=== PATIENT | female | born 2005 | race Two or more races ===

== ENCOUNTER 2024-09-15 22:44 | Emergency (ER) | payer MEDICAID, SELFPAY ==
[2024-09-15 22:46] VITALS: BMI 25.7
[2024-09-15 22:57] VITALS: BP 135/82; PULSE 55; RESP 19; TEMP 36.4; O2SAT 99
--- NOTE | 2024-09-16 01:58 | EDNOTE_ITS ---
ED Abdominal Pain RME/HPI General Chief Complaint: Abdominal Pain Stated complaint: VOMITING,DIARRHEA,ABD PAIN Time seen by provider: 09/16/24 01:04 Arrival date/time: 09/15/24 22:44 RME / HPI RME / HPI narrative: 19-year-old female presents to the ED with complaint of nausea and vomiting since Monday. She vomited 3 times on Monday, 2 times on Monday and once on Monday. She continues to have nausea. She denies any recent illness with fever, chills, cough, upper respiratory complaints, diarrhea or constipation. She is complaining of some mild epigastric and left upper quadrant pain with vomiting. She denies any dysuria or frequency. Her last menstrual period started last Monday and is normal per patient. Related Data Previous Rx's ?Medication ?Instructions ?Recorded ondansetron 4 mg disintegrating 4 mg PO Q8H PRN nausea and 09/16/24 tablet vomiting #10 tabs Allergies Allergy/AdvReac Type Severity Reaction Status Date / Time No Known Allergies Allergy Verified 09/15/24 22:45 Review of Systems Review of Systems Systems Reviewed: All systems reviewed, normal except as documented Past Medical History Social History SMOKING STATUS: Never smoker ED Exam Narrative Physical exam: A&O, afebrile and non-toxic appearing 19-year-old female, no acute distress. Lung are clear, RRR, Abdomen is soft with mild epigastric and left upper quadrant tenderness. No rebound or guarding. Negative psoas and obturator. No peritoneal irritation with pelvic rock. Abdomen is non-distended. No CVA tend erness. Moves all extremities well. Course Course Course Narrative: CBC reveals a minimally elevated WBCs of 11.2, normal H&H and normal platelets. CMP reveals normal electrolytes, normal renal function and normal LFTs. Magnesium and phosphorus are both normal. Amylase and lipase are normal at 80 /35. Urinalysis reveals clear light yellow urine with a specific gravity of 1.028 with 3+ blood, negative nitrites, negative leukocyte esterase, 60 RBCs, 6 WBCs and no bacteria. Urine hCG is negative. Urine tox screen is negative. Abdominal ultrasound is negative for acute process. Patient was given ondansetron 4 mg p.o. Quality Measures none Orders Category Date Time Status NPO STAT Care 09/16/24 02:21 Active US abdomen limited Stat Exams 09/16/24 02:21 Taken Amylase Stat Lab 09/16/24 02:34 Completed CBC Stat Lab 09/16/24 02:34 Completed Comprehensive Metabolic Panel Stat Lab 09/16/24 02:34 Completed Drug Screen,Urine Stat Lab 09/16/24 02:32 Completed HCG Qualitative,Urine Stat Lab 09/16/24 02:32 Completed Lipase Stat Lab 09/16/24 02:34 Completed Magnesium Stat Lab 09/16/24 02:34 Completed Phosphorous Stat Lab 09/16/24 02:34 Completed Urinalysis, C/S if Indicated Stat Lab 09/16/24 02:32 Completed Ondansetron Inj [Zofran Inj] Med 09/16/24 02:21 Discontinued 4 mg IVP X1 ONE Ondansetron Odt [Zofran Odt] Med 09/16/24 02:32 Discontinued 4 mg PO X1 ONE Vital Signs Vital signs: Vital Signs Temperature 97.6 F 09/15/24 22:57 Pulse Rate 55 L 09/15/24 22:57 Respiratory Rate 19 09/15/24 22:57 Blood Pressure 135/82 H 09/15/24 22:57 Pulse Oximetry (%) 99 09/15/24 22:57 Oxygen Delivery Method Room Air 09/15/24 22:57 Abdominal Pain MDM MDM Narrative MDM Narrative:: Symptoms, exam and diagnostic studies are consistent with: Nausea and vomiting with normal laboratory results and normal abdominal ultrasound. Patient was discharged home in stable condition. Patient/family advised to follow-up with their PCP in 24-48 hours. Encouraged to return to the ED for any new or worsening symptoms. Patient data External records reviewed:: None Clinical information provided by:: patient Social determinants that could affect healthcare access:: none Patient has the following chronic illnesses:: N/A How is presenting disease/condition affected by chronic disease/condition?: no chronic disease Evaluation data The following diagnostics were reviewed and interpreted by me:: lab results and radiology exam(s) Lab and/or radiology exams considered but not ordered:: N/A Interpretation Summary: As noted above Medications / Prescriptions Medications or Prescriptions considered but not ordered:: N/A Medication administrations:: Medication Administration History Discontinued Medications Ondansetron HCl (Ondansetron Inj 2 Mg/Ml Inj 2 Ml) 4 mg IVP X1 ONE; Protocol Stop: 09/16/24 02:22 Last Admin: 09/16/24 02:33 Dose: Not Given Documented By: AVINASH Non-Admin Reason: Cancelled by Provider Ondansetron HCl (Ondansetron Odt 4 Mg Tabrap) 4 mg PO X1 ONE; Protocol Stop: 09/16/24 02:33 Last Admin: 09/16/24 02:35 Dose: 4 mg Documented By: AVINASH As noted above Consultations Consultation(s) initiated? (list below): No Diagnosis Differential diagnosis abdominal pain: abdominal pain, gastroenteritis, pancreatitis and other (Cholelithiasis, cholecystitis) Most likely diagnosis given after review of the tests above:: Nausea and vomiting Admission Indicated Admission indicated?: not indicated Explain why admission is indicated or not indicated:: Patient is stable for discharge Admission Request Was there a request for admission?: No Disposition Plan Disposition Plan: Discharge Discharge Attestation Discharge Attestation: The patient and all family members were given an opportunity to ask questions and understood the discharge instructions. Discharge instructions specifically effects, indications for sooner follow up or return to the emergency department, and the expected course of current diagnosis. Patient condition: Stable Discharge Plan Plan Patient Disposition: HOME (Self Care) Discharge Disposition comment: Stable Prescriptions/Referrals Prescriptions/Med Rec: New ondansetron 4 mg tablet,disintegrating 4 mg PO Q8H PRN (Reason: nausea and vomiting) Qty: 10 0RF Referrals: Buffy Moore NP [Primary Care Provider] - In 1 week Problem List Clinical Impression: Nausea and vomiting Patient/Caregiver Discharge Instructions Education Materials: ED Vomiting (Adult) Additional Instructions: Use the ondansetron tablets as needed for nausea and vomiting. Follow-up with your primary care physician in 24 to 48 hours. Return to the ED for any new or worsening symptoms. Print Language: Kosovan Stand Alone Forms: Work/School Release, Patient Portal Info Letter PAUL/CHELSEA Supervising Physician EDUAR Supervising Physician: Dr. King
--- NOTE | 2024-09-16 02:21 | XR_ITS ---
Examination: Abdomen sonogram, Limited Date and time of exam: September 16, 2024, 0238 hours INDICATIONS: Epigastric pain and vomiting beginning 3 days ago Technique: Real-time manzo scale transabdominal sonographic images of the upper abdomen obtained. Findings: Normal gallbladder. Normal common bile duct 0.3 cm. Pancreatic head 1.8 cm. Liver 14.4 cm no focal liver lesions. Normal hepatopedal portal venous flow. Patent IVC. IMPRESSION: Negative study.
[2024-09-16] MEDS: ONDANSETRON ODT 4 MG TABRAP PO (02:35)
[2024-09-16 02:43] LABS: Collection Type, Urine Clean Catch
[2024-09-16 02:48] LABS: Bilirubin,Urine Negative (Negative); Blood,Urine 3+ (Negative); Clarity,Urine Clear (Clear/Hazy); Color,Urine Lt-Yellow (Lt Yel-Yel); Culture Indicated,Urine Not Indicated; Glucose, Urine Negative (Negative); Ketones,Urine Negative (Negative); Leukocyte Esterase,Urine Negative (Negative); Nitrite,Urine Negative (Negative); PH,Urine 6.0 (5.0-7.0); Protein,Urine Negative (Neg - Trace); RBC,Urine 60 /hpf (0-3); Specific Gravity,Urine 1.028 (1.001-1.035); Squamous Epithelial Cell,Urine 1 /hpf (0-5); Urobilinogen,Urine Negative mg/dL (0.0-1.0); WBC,Urine 6 /hpf (0-5)
[2024-09-16 02:48] LABS: Basophils # (Auto) 0.1 Thou/mm3 (0.0-0.2); Basophils % (Auto) 1 % (0-2.5); Eosinophils # (Auto) 0.3 Thou/mm3 (0.0-0.5); Eosinophils % (Auto) 3 % (0-10); Hematocrit 44.1 % (36.0-46.0); Hemoglobin 14.9 g/dL (12.0-16.0); Immature Granulocytes Auto 0.04 Thou/mm3 (0.00-0.00); Lymphocytes # (Auto) 2.6 Thou/mm3 (1.0-4.8); Lymphocytes % (Auto) 23 % (10-50); Mean Corpuscular HGB Conc 33.8 g/dl (31.0-37.0); Mean Corpuscular Hemoglobin 33.3 pg (25.0-35.0); Mean Corpuscular Volume 98 fL (80-100); Monocytes # (Auto) 0.6 Thou/mm3 (0.0-0.8); Monocytes % (Auto) 5 % (0-12); Neutrophils # (Auto) 7.6 Thou/mm3 (1.8-7.7); Neutrophils % (Auto) 68 % (37-80); Nucleated Red Blood Cell # 0.00 Thou/mm3 (0.00-0.00); Nucleated Red Blood Cell % 0 /100 WBC (0); Platelet Count 270 Thou/mm3 (140-440); RDW Standard Deviation 43.7 fL (36.4-46.3); Red Blood Count 4.48 Miln/mm3 (4.00-5.20); White Blood Count 11.2 Thou/mm3 (4.5-11.0)
[2024-09-16 02:49] LABS: HCG Qualitative,Urine Negative
[2024-09-16 02:56] LABS: Amphetamine/Methamp Scrn,U Negative (Negative); Barbiturate Screen,Urine Negative (Negative); Benzodiazepines Screen,Urine Negative (Negative); Benzoylecgonine Screen, Ur Negative (Negative); Fentanyl Screen,Urine Negative (Negative); Opiate Screen,Urine Negative (Negative); THC Screen,Urine Negative (Negative)
[2024-09-16 03:04] LABS: Alanine Aminotransferase 15 U/L (10-49); Albumin, Serum 4.8 gm/dL (3.5-5.0); Albumin/Globulin Ratio 1.5 (1.2-2.2); Alkaline Phosphatase 104 U/L (46-116); Amylase 80 U/L (30-118); Anion Gap 8 (7-16); Aspartate Amino Transferase 19 U/L (0-34); BUN/Creatinine Ratio 11 Ratio (12-20); Bilirubin,Total 0.4 mg/dL (0.3-1.2); Blood Urea Nitrogen 11 mg/dL (9-23); Calcium 9.6 mg/dL (8.3-10.6); Calcium (Corrected) 9.6 mg/dL (8.5-10.1); Carbon Dioxide 26.6 mMol/L (20.0-31.0); Chloride 107 mMol/L (98-107); Creatinine (Component) 1.0 mg/dL (0.6-1.3); Estimated Creatinine Clearance 85.1 mL/min (>60); Globulin 3.1 gm/dL (2.3-3.5); Glucose 102 mg/dL (74-106); Lipase 35 U/L (12-53); Magnesium 1.7 mg/dL (1.6-2.6); Osmolality,Calculated 282 (275-295); Phosphorous 4.1 mg/dL (2.4-5.1); Potassium 4.2 mMol/L (3.4-5.1); Sodium 142 mMol/L (136-145); Total Protein 7.9 gm/dL (5.7-8.2); eGFR > 60 See Note
--- NOTE | 2024-09-16 05:26 | PRELIM_ITS ---
Ultrasound Abdomen. September 16, 2024 0238 hours Clinical history: Vomiting and epigastric pain Technique: Grayscale and color flow images of the abdomen are provided. Hepatic and portal veins were also imaged with color flow images. Findings: The liver is normal in echogenicity. The main portal vein is patent and demonstrates hepatopetal flow.No intrahepatic biliary ductal dilatation. No gallbladder calculus, wall thickening or pericholecystic fluid is demonstrated. The common bile duct is normal in caliber at 3 mm. No free fluid is demonstrated on the submitted images. The pancreas is unremarkable to the extent visualized. The inferior vena cava is patennt. Impression: Unremarkable abdominal sonogram. Report Electronically Signed By: Prasanna Chino 09/16/2024 5:26:10 AM [EST]
== END 2024-09-16 05:56 | disposition home or self-care (01) ==
PROVIDERS: Physician Assistant; Emergency Provider Emergency Medicine; PCP Nurse Practitioner Family
DX: R11.2 Nausea with vomiting, unspecified (principal); R10.13 Epigastric pain; D72.829 Elevated white blood cell count, unspecified
CPT/HCPCS: 36415; 76705; 80053; 80307; 81001; 81025; 82150; 83690; 83735; 84100; 85025; 99283; Q0162